=== PATIENT | female | born 1935 | race African-American/Black ===

== ENCOUNTER 2021-10-18 11:09 | Outpatient (REF) | payer MEDICARE, SELFPAY ==
[2021-10-18 13:02] LABS: Vitamin B12 423 pg/mL (200-900)
== END 2021-10-18 11:10 | disposition home or self-care (01) ==
LOC: HO.LAB 11:09
PROVIDERS: PCP Internal Medicine; Visit Provider Psychiatry & Neurology Neurology
DX: G30.9 Alzheimer's disease, unspecified (principal)
CPT/HCPCS: 36415; 82607